=== PATIENT | male | born 1975 | race Caucasian/White ===

== ENCOUNTER 2017-09-02 19:38 | Day surgery (SDC) | payer BC, OTHER ==
--- NOTE | 2017-09-02 19:49 | PDOC ---
History of Present Illness - General History Source: Patient Exam Limitations: No Limitations - History of Present Illness Initial Comments: 09/02/17 21:13 Patient is a 42 year old male with no significant past medical history who presents to the ED with complaints of object stuck in throat that began at 12pm this afternoon. Patient reports eating rice and chicken this afternoon when he began to experience what he felt was a object stuck in the middle of his throat. He reports trying to drink liquids to remove object from throat multiple times with no relief. Patient reports experiencing similar experience months ago but states it relieved on his own. Denies chest pain, SOB. Denies nausea, vomiting. Denies fevers, chill. Denies any other symptoms. Allergies: None Social history: No smoking. Social drinker. No illicit drugs. Surgical history: None PMD: None Adult ROS General: No fevers or chills, no weakness, no weight loss HEENT: +Throat pain. No change in vision. No sore throat, No ear pain Cardiovascular: No chest pain or shortness of breath Respiratory:No cough, or wheezing. Gastrointestinal: No nausea, vomiting, diarrhea or constipation, No rectal bleeding Genitourinary: No dysuria, hematuria, or frequency Musculoskeletal: No joint or muscle pain or swelling Neurologic: No headache, vertigo, dizziness or loss of consciousness Psychiatric: No depression Skin: No rashes or easy bruising Endocrine: No increased thirst or abnormal weight change Allergic: No skin or latex allergy All other systems reviewed and normal Adult PE General: Well-nourished well-developed individual, no acute distress HEENT: Throat: Normal, tonsils normal, no erythema or exudate Neck: Supple, no meningeal signs, no lymphadenopathy Eyes::Pupils equal reactive and round, extraocular motion intact Chest: Nontender to palpation Cardiac: S1-S2 normal, regular rate and rhythm, no murmurs rubs or gallops Respiratory: Lungs clear to auscultation bilateral Extremities: Warm, dry, no cyanosis, clubbing, or edema Skin: No rashes Neuro: Alert and oriented x3, nonfocal exam, grossly intact, normal gait Psych: Normal mood and affect <Felice Torres - Last Filed: 09/02/17 21:13> - General History Source: Patient Exam Limitations: No Limitations - History of Present Illness Initial Comments: 20:00 Medical decision making: This is a 42-year-old male who comes in with a esophageal food bolus impaction. Patient has history of similar in the past that resolved post of vomiting. Patient has had this impaction times approximately 9 hours now. Patient is not swallowing any of his secretions. Patient denies any shortness of breath We'll give Glucagon. And reassess 45 minutes after glucagon to see if impaction results 20:45 Patient food impaction has not resolved Dr. Garcia was contacted and discussed with Dr. Garcia who well do an endoscopy over at [facility] patient will be transferred to [facility] for the endoscopy <Leeann Tierney I - Last Filed: 09/02/17 21:24> - General Stated Complaint: SOMETHING CAUGHT IN THROAT Time Seen by Provider: 09/02/17 19:46 Past History <Felice Torres - Last Filed: 09/02/17 21:13> <Leeann Tierney I - Last Filed: 09/02/17 21:24> - Past Medical History Allergies/Adverse Reactions: Allergies Allergy/AdvReac Type Severity Reaction Status Date / Time No Known Allergies Allergy Verified 09/02/17 19:53 Review of Systems - Review of Systems Able to Perform ROS?: Yes All Other Systems: Reviewed and Negative <Felice Torres - Last Filed: 09/02/17 21:13> *Physical Exam - Vital Signs Last Vital Signs Temp Pulse Resp BP Pulse Ox 98.8 F 95 H 18 157/103 96 09/02/17 20:06 09/02/17 20:06 09/02/17 20:06 09/02/17 20:06 09/02/17 20:06 <Felice Torres - Last Filed: 09/02/17 21:13> ED Treatment Course - LABORATORY CBC & Chemistry Diagram: 09/02/17 20:45 09/02/17 20:45 - ADDITIONAL ORDERS Additional order review: 09/02/17 20:45 RBC 5.30 MCV 90.0 MCHC 33.8 RDW 12.3 MPV 10.4 Neutrophils % 78.5 Lymphocytes % 14.4 Monocytes % 5.6 Eosinophils % 0.7 Basophils % 0.8 - Medications Given in the ED: ED Medications Discontinued Medications Generic Name Dose Route Start Last Admin Trade Name Freq PRN Reason Stop Dose Admin Glucagon 1 mg 09/02/17 19:53 09/02/17 20:05 Glucagon - IVPUSH 09/02/17 19:54 1 mg ONCE ONE Administration Sodium Chloride 1,000 mls @ 1,000 mls/hr 09/02/17 20:09 09/02/17 20:11 Normal Saline - IV 09/02/17 21:08 1,000 mls/hr .Q1H ONE Administration <Felice Torres - Last Filed: 09/02/17 21:13> - LABORATORY CBC & Chemistry Diagram: 09/02/17 20:45 09/02/17 20:45 <Leeann Tierney I - Last Filed: 09/02/17 21:24> *DC/Admit/Observation/Transfer - Attestations Scribe Attestion: 09/02/17 21:14 Documentation prepared by Felice Torres, acting as medical radiation therapist for Leeann Tierney MD/DO. <Felice Torres - Last Filed: 09/02/17 21:13> <Leeann Tierney I - Last Filed: 09/02/17 21:24> Diagnosis at time of Disposition: Impacted esophageal foreign body Qualifiers: Encounter type: initial encounter Qualified Code(s): T18.108A - Unspecified foreign body in esophagus causing other injury, initial encounter - Discharge Dispostion Disposition: HOME Condition at time of disposition: Stable
[2017-09-02] MEDS ORDERED: GLUCAGON 1 MG KIT IVPUSH ONE (19:53)
[2017-09-02] MEDS ORDERED: GLUCAGON 1 MG KIT ONE (20:03)
[2017-09-02] MEDS ORDERED: SODIUM CHLORIDE 1,000 ML IV ONE (20:09)
[2017-09-02 20:10] VITALS: BMI 30.8
[2017-09-02 21:04] LABS: BASO % 0.8 % (0-2.0); EOS % 0.7 % (0-4.5); HEMATOCRIT 47.7 % (35.4-49); HEMOGLOBIN 16.1 GM/dl (11.7-16.9); LYMPH % 14.4 % (8-40); MCH 30.4 pg (25.7-33.7); MCHC 33.8 g/dl (32.0-35.9); MEAN PLT VOLUME 10.4 fl (7.5-11.1); MONO % 5.6 % (3.8-10.2); NEUT % 78.5 % (42.8-82.8); PLATELET COUNT 307 K/MM3 (134-434); RDW 12.3 % (11.9-15.9); WHITE BLOOD COUNT 9.9 K/mm3 (4.0-10.8)
[2017-09-02 21:24] LABS: ALBUMIN 4.9 g/dl (3.5-5.0); ALK PHOS 47 U/L (32-92); ANION GAP 10 (8-16); BILIRUBIN,TOTAL 0.6 mg/dl (0.2-1.0); BLOOD UREA NITROGEN 11 mg/dl (7-18); CHLORIDE 105 mmol/L (98-107); CO2 25 mmol/L (22-28); GLUCOSE,RANDOM 104 mg/dl (74-106); SGOT/AST 32 U/L (10-42); SGPT/ALT 47 U/L (10-40); SODIUM 140 mmol/L (136-145); TOT PROT 8.2 g/dl (6.4-8.3)
--- NOTE | 2017-09-02 23:27 | CON.GI ---
Consult Consult Specialty:: GI - History of Present Illness History of Present Illness: A 42 yom with food impaction (rice and chicken meal) which occurred about 9 hrs ago. Seen in ED around 8 pm. Unable to swallow saliva. Glucagon had no effect per ED records. No fever, chills, nausea. chest pain. Pt reports having similar , self-limited episode 3-4 years ago. Denies chronic acid reflux, dyspepsia, diarrhea, weight loss, skin, joints symptoms. - Alcohol/Substance Use Hx Alcohol Use: Yes - Smoking History Smoking history: Never smoked Have you smoked in the past 12 months: No Home Medications - Allergies Allergies/Adverse Reactions: Allergies Allergy/AdvReac Type Severity Reaction Status Date / Time No Known Allergies Allergy Verified 09/02/17 19:53 Family Disease History - Family Disease History Family History: Unremarkable (non-contributory) Review of Systems Findings/Remarks: Negative except self-limited episode of dysphagia Physical Exam-GI Vital Signs: Vital Signs Temperature 98.8 F 09/02/17 20:06 Pulse Rate 95 H 09/02/17 20:06 Respiratory Rate 18 09/02/17 20:06 Blood Pressure 140/97 09/02/17 21:28 O2 Sat by Pulse Oximetry (%) 96 09/02/17 22:07 Constitutional: Yes: Well Nourished, No Distress, Calm Eyes: Yes: Conjunctiva Clear HENT: Yes: Atraumatic Neck: Yes: Supple Cardiovascular: Yes: Regular Rate and Rhythm Respiratory: Yes: Regular, Other (so subcutaneous emphysema) Gastrointestinal Inspection: No: Distention ...Auscultate: Yes: Normoactive Bowel Sounds Neurological: Yes: Alert, Oriented Psychiatric: Yes: Alert Labs: CBC, BMP 09/02/17 20:45 09/02/17 20:45 Laboratory Tests 09/02/17 09/02/17 20:45 20:45 WBC 9.9 RBC 5.30 Hgb 16.1 Hct 47.7 MCV 90.0 MCH 30.4 MCHC 33.8 RDW 12.3 Plt Count 307 MPV 10.4 Neutrophils % 78.5 Lymphocytes % 14.4 Monocytes % 5.6 Eosinophils % 0.7 Basophils % 0.8 Sodium 140 Potassium 4.0 Chloride 105 Carbon Dioxide 25 Anion Gap 10 BUN 11 Creatinine 1.0 Creat Clearance w eGFR > 60 Random Glucose 104 Calcium 10.0 Total Bilirubin 0.6 AST 32 ALT 47 H Alkaline Phosphatase 47 Total Protein 8.2 Albumin 4.9 Imaging - Results X-ray: Pending (prelim. no acute findings. official read pending) Problem List - Problems (1) Impacted esophageal foreign body Code(s): T18.108A - UNSP FOREIGN BODY IN ESOPHAGUS CAUSING OTH INJURY, INIT Qualifiers: Encounter type: initial encounter Qualified Code(s): T18.108A - Unspecified foreign body in esophagus causing other injury, initial encounter Assessment/Plan Airway protection EGD Follow formal CXR reading
--- NOTE | 2017-09-02 23:49 | PN ---
Progress Note (short form) - Note Progress Note: Pt reports being able to swallow saliva now and tolerated some water. The impaction either resolved, or the bolus has moved distally. Will procede with EGD with biposies to r/o EOE if the visual exam is normal. discussed with the patient. Problem List - Problems (1) Impacted esophageal foreign body Code(s): T18.108A - UNSP FOREIGN BODY IN ESOPHAGUS CAUSING OTH INJURY, INIT Qualifiers: Encounter type: initial encounter Qualified Code(s): T18.108A - Unspecified foreign body in esophagus causing other injury, initial encounter
[2017-09-02] MEDS ORDERED: PROPOFOL 20 ML ONE ×2 (23:57)
[2017-09-03] MEDS ORDERED: oxyCODONE HCL 5 MG TABLET PO PRN (00:53)
[2017-09-03] MEDS ORDERED: PROMETHAZINE HCL 25 MG/1 ML VIAL IVPUSH PRN (00:53)
[2017-09-03] MEDS ORDERED: ONDANSETRON 4 MG/2 ML VIAL IVPUSH PRN (00:53)
--- NOTE | 2017-09-03 00:53 | PROC ---
Endoscopy Procedure Endoscopy procedure completed. Please see scanned procedure report. EGD for food impaction, successfully mitigated. Biopsies taken to r/o EOE, gastritis, and celiac Soft diet Protonix 40 mg po qm Follow biopsies in office in 1 week
[2017-09-03] MEDS ORDERED: LACTATED RINGERS SOLUTION 1,000 ML IV SCH (01:00)
[2017-09-03 09:18] VITALS: BP 118/67; PULSE 79; TEMP 98.9
[2017-09-03] MEDS ORDERED: PANTOPRAZOLE 40 MG TABLET (FP) PO SCH (10:00)
--- NOTE | 2017-09-03 11:48 | PN ---
Progress Note, Physician History of Present Illness: No evensts, Asymptomatic. Tolerated breakfast. - Current Medication List Current Medications: Active Medications Fentanyl (Sublimaze Injection -) 50 mcg IVPUSH [id number] PRN PRN Reason: PAIN Lactated Ringer's (Lactated Ringers Solution) 1,000 mls @ 75 mls/hr IV ASDIR [facility] Last Admin: 09/03/17 01:36 Dose: 75 mls/hr Ondansetron HCl (Zofran Injection) 4 mg IVPUSH Q6H PRN PRN Reason: NAUSEA AND/OR VOMITING Oxycodone HCl (Roxicodone -) 10 mg PO Q4H PRN PRN Reason: SEVERE PAIN Stop: 09/04/17 00:52 Pantoprazole Sodium (Protonix -) 40 mg PO DAILY [facility] Last Admin: 09/03/17 09:05 Dose: 40 mg Promethazine HCl (Phenergan Injection -) 12.5 mg IVPUSH Q6H PRN PRN Reason: NAUSEA-FOR RESCUE AFTER 15 MIN - Objective Vital Signs: Vital Signs Temperature 98.9 F 09/03/17 08:00 Pulse Rate 79 09/03/17 08:00 Respiratory Rate 20 09/03/17 08:00 Blood Pressure 118/67 09/03/17 08:00 O2 Sat by Pulse Oximetry (%) 96 09/03/17 09:10 Constitutional: Yes: Well Nourished, No Distress, Calm Eyes: Yes: Conjunctiva Clear HENT: Yes: Atraumatic Neck: Yes: Supple Cardiovascular: Yes: Regular Rate and Rhythm Respiratory: Yes: Regular Gastrointestinal: Yes: Normal Bowel Sounds, Soft Neurological: Yes: Alert, Oriented Labs: CBC, BMP 09/02/17 20:45 09/02/17 20:45 Laboratory Tests 09/02/17 09/02/17 20:45 20:45 WBC 9.9 RBC 5.30 Hgb 16.1 Hct 47.7 MCV 90.0 MCH 30.4 MCHC 33.8 RDW 12.3 Plt Count 307 MPV 10.4 Neutrophils % 78.5 Lymphocytes % 14.4 Monocytes % 5.6 Eosinophils % 0.7 Basophils % 0.8 Sodium 140 Potassium 4.0 Chloride 105 Carbon Dioxide 25 Anion Gap 10 BUN 11 Creatinine 1.0 Creat Clearance w eGFR > 60 Random Glucose 104 Calcium 10.0 Total Bilirubin 0.6 AST 32 ALT 47 H Alkaline Phosphatase 47 Total Protein 8.2 Albumin 4.9 Problem List - Problems (1) Impacted esophageal foreign body Code(s): T18.108A - UNSP FOREIGN BODY IN ESOPHAGUS CAUSING OTH INJURY, INIT Qualifiers: Encounter type: initial encounter Qualified Code(s): T18.108A - Unspecified foreign body in esophagus causing other injury, initial encounter Assessment/Plan Food impaction Biopsies taken Follow results in 1 week. Soft diet chew food thoroughly with adequate fluid intake during meals. discussed
--- NOTE | 2017-09-03 17:03 | EKG ---
Test Reason : Blood Pressure : / mmHG Vent. Rate : 082 BPM Atrial Rate : 082 BPM P-R Int : 208 ms QRS Dur : 084 ms QT Int : 364 ms P-R-T Axes : 023 012 003 degrees QTc Int : 425 ms POOR DATA QUALITY, INTERPRETATION MAY BE ADVERSELY AFFECTED NORMAL SINUS RHYTHM WITH SINUS ARRHYTHMIA 1st degree AVB NO PREVIOUS ECGS AVAILABLE Confirmed by MD ADA, TIFFANIE ([id number]) on 09/03/2017 5:03:30 PM Referred By: Tariq Garcia Confirmed By:TIFFANIE CABALLERO MD
--- NOTE | 2017-09-04 17:01 | PATH ---
Surgical Pathology Report Patient Name: RAFAELA NATION [facility]. Rec. #: [id number] /Age/Gender: 1975 (Age: 42) / M Account: [id number] Location: U-ENDOSCOPY Taken: 09/02/2017 Received: 09/03/2017 Reported: 09/04/2017 Physicians: Tariq Garcia M.D. Specimen(s) Received A: BX DUODENUM B: BX ANTRUM AND BODY C: BX DISTAL ESOPHAGUS D: BX MID ESOPHAGUS Clinical History Preoperative diagnosis: Foreign body caught in throat Postop diagnosis: Same Final Diagnosis A. DUODENUM, BIOPSY: DUODENAL MUCOSA WITHOUT SIGNIFICANT PATHOLOGIC FINDINGS. B. STOMACH, ANTRUM AND BODY, BIOPSY: GASTRIC ANTRAL MUCOSA WITH MILD CHRONIC GASTRITIS. IMMUNOHISTOCHEMICAL STAIN FOR H. PYLORI IS NEGATIVE. C. DISTAL ESOPHAGUS, BIOPSY: SQUAMOCOLUMNAR MUCOSA WITH SEVERE REFLUX-TYPE ESOPHAGITIS. 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 NO DYSPLASIA PRESENT. D. MID ESOPHAGUS, BIOPSY: SQUAMOUS MUCOSA WITH MODERATE REFLUX-TYPE ESOPHAGITIS. Electronically Signed Emilie Quintana M.D. Gross Description A. Received in formalin, labeled "duodenum biopsy" are 2 tyler, irregular portions of soft tissue averaging 0.2 cm. in greatest dimension. The specimens are submitted in toto in one cassette. B. Received in formalin, labeled "antrum and body biopsy" are 2 tyler, irregular portions of soft tissue averaging 0.2 cm. in greatest dimension. The specimens are submitted in toto in one cassette. C. Received in formalin, labeled "distal esophagus" are 2 tyler, irregular portions of soft tissue measuring 0.1 and 0.5 cm. in greatest dimension. The specimens are submitted in toto in one cassette. D. Received in formalin, labeled "mid esophagus" are 2 tyler, irregular portions of soft tissue measuring 0.3 and 0.4 cm. in greatest dimension. The specimens are submitted in toto in one cassette. 09/03/201709/03/2017
== END 2017-09-03 12:05 | disposition home or self-care (01) ==
LOC: FER 19:38 → JASU-ENDO 22:02 → J6S 23:25 → JASU-ENDO 09-03 12:05
PROVIDERS: ATTEND Internal Medicine Gastroenterology
PROC: 0DB98ZX Excision of Duodenum, Via Natural or Artificial Opening Endoscopic, Diagnostic (ICD-10-PCS; 2017-09-02)
PROC: 0DB28ZX Excision of Middle Esophagus, Via Natural or Artificial Opening Endoscopic, Diagnostic (ICD-10-PCS; 2017-09-02)
PROC: 0DB38ZX Excision of Lower Esophagus, Via Natural or Artificial Opening Endoscopic, Diagnostic (ICD-10-PCS; 2017-09-02)
PROC: 0DC38ZZ Extirpation of Matter from Lower Esophagus, Via Natural or Artificial Opening Endoscopic (ICD-10-PCS; principal; 2017-09-02 23:12)
DX: T18.128A Food in esophagus causing other injury, initial encounter (principal); X58.XXXA Exposure to other specified factors, initial encounter; Y93.9 Activity, unspecified; Y92.9 Unspecified place or not applicable
CPT/HCPCS: 36415; 71045-TC; 80053; 85025; 88305-TC; 88342-TC; 93005; 94760; 99284-25

== ENCOUNTER 2018-11-24 08:13 | Day surgery (SDC) | payer BC ==
[2018-11-21 09:11] VITALS: BMI 30.8
[2018-11-24] MEDS ORDERED: PROPOFOL 20 ML ONE (09:06)
[2018-11-24] MEDS ORDERED: MIDAZOLAM HCL 2 MG/2 ML SINGLE DOSE VIAL ONE (09:07)
[2018-11-24 09:40] VITALS: TEMP 97.6
[2018-11-24 10:03] VITALS: BP 128/54; PULSE 70
--- NOTE | 2018-11-26 16:24 | PATH ---
Surgical Pathology Report Patient Name: RAFAELA NATION [facility]. Rec. #: [id number] /Age/Gender: 1975 (Age: 43) / M Account: [id number] Location: [facility] Taken: 11/24/2018 Received: 11/24/2018 Reported: 11/26/2018 Physicians: Suman Ruano M.D. Specimen(s) Received A: DUODENUM SECOND PORTION B: ANTRUM C: GE JUNCTION Clinical History GERD Postoperative diagnosis: Gastritis, rule out Polanco's Final Diagnosis A. DUODENUM, SECOND PORTION, BIOPSY: DUODENAL MUCOSA WITH MILD CHRONIC DUODENITIS AND PRESERVED VILLOUS ARCHITECTURE. B. GASTRIC ANTRUM, BIOPSY: GASTRIC ANTRAL MUCOSA WITH MODERATE CHRONIC GASTRITIS. IMMUNOHISTOCHEMICAL STAIN FOR H. PYLORI IS NEGATIVE. C. 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 NO DYSPLASIA IDENTIFIED. Electronically Signed Emilie Quintana M.D. Gross Description A. Received in formalin, labeled "biopsy second portion of duodenum" are 2 tyler, irregular portions of soft tissue measuring 0.3 and 0.4 cm. in greatest dimension. The specimens are submitted in toto in one cassette. B. Received in formalin, labeled "biopsy gastric antrum" are 2 tyler, irregular portions of soft tissue measuring 0.3 and 0.4 cm. in greatest dimension. The specimens are submitted in toto in one cassette. C. Received in formalin, labeled "biopsy GE junction" are 4 tyler, irregular portions of soft tissue ranging from 0.1-0.4 cm. in greatest dimension. The specimens are submitted in toto in one cassette. DL/11/25/2018 saudi11/25/2018
== END 2018-11-24 10:10 | disposition home or self-care (01) ==
LOC: FASU-ENDO 08:13
PROVIDERS: ATTEND Internal Medicine Gastroenterology
PROC: 0DB68ZX Excision of Stomach, Via Natural or Artificial Opening Endoscopic, Diagnostic (ICD-10-PCS; 2018-11-24)
PROC: 0DB48ZX Excision of Esophagogastric Junction, Via Natural or Artificial Opening Endoscopic, Diagnostic (ICD-10-PCS; 2018-11-24)
PROC: 0DB98ZX Excision of Duodenum, Via Natural or Artificial Opening Endoscopic, Diagnostic (ICD-10-PCS; principal; 2018-11-24 09:18)
DX: Z13.810 Encounter for screening for upper gastrointestinal disorder (principal); K29.50 Unspecified chronic gastritis without bleeding; K29.80 Duodenitis without bleeding; K21.0 Gastro-esophageal reflux disease with esophagitis; Z87.19 Personal history of other diseases of the digestive system
CPT/HCPCS: 88305-TC; 88342-TC